=== PATIENT | female | born 1980 | race Caucasian/White ===

== ENCOUNTER → 2017-11-04 12:27 | Outpatient (CLI) | payer MEDICAID, SELFPAY ==
--- NOTE | 2017-11-04 12:30 | US_ITS ---
STUDY: ULTRASOUND TRANSVAGINAL CLINICAL: Female, 37 years old. Irregular menses. On control pills. IUD removed 1 year ago. TECHNIQUE: Transabdominal and transvaginal pelvic ultrasound. COMPARISON: None. FINDINGS: Uterus 9.6 x 4.7 x 3.7 cm, mildly heterogeneous echotexture of the uterine myometrium, a solitary fibroid noted 13 x 14 x 8 mm. Uterus is anteverted. Endometrium measures 7 mm, normal echotexture. Normal sonographic appearance of the cervix. There is no evidence of IUD. The right ovary measures 53 x 41 x 41 mm, appropriate vascular flow demonstrated. There is dense shadowing behind much of the right ovary, which may reflect either calcification, or the presence of dermoid (tip of the iceberg sign). There is no right adnexal free fluid. Left ovary is 29 x 30 x 16 mm, normal echotexture and vascular flow. There is no left ovarian mass or suspicious cyst or free fluid in left adnexa. No free fluid in the cul-de-sac. US/Transvaginal Non- IMPRESSION: Suspected dermoid of the right ovary. Normal left ovary. Small fibroid of uterus. Normal endometrium. Electronically Signed: Truong Murray, at 14:03 EDT Tel , Service support ,
--- NOTE | 2017-11-04 12:30 | US_ITS ---
STUDY: ULTRASOUND TRANSVAGINAL CLINICAL: Female, 37 years old. Irregular menses. On control pills. IUD removed 1 year ago. TECHNIQUE: Transabdominal and transvaginal pelvic ultrasound. COMPARISON: None. FINDINGS: Uterus 9.6 x 4.7 x 3.7 cm, mildly heterogeneous echotexture of the uterine myometrium, a solitary fibroid noted 13 x 14 x 8 mm. Uterus is anteverted. Endometrium measures 7 mm, normal echotexture. Normal sonographic appearance of the cervix. There is no evidence of IUD. The right ovary measures 53 x 41 x 41 mm, appropriate vascular flow demonstrated. There is dense shadowing behind much of the right ovary, which may reflect either calcification, or the presence of dermoid (tip of the iceberg sign). There is no right adnexal free fluid. Left ovary is 29 x 30 x 16 mm, normal echotexture and vascular flow. There is no left ovarian mass or suspicious cyst or free fluid in left adnexa. No free fluid in the cul-de-sac. US/Pelvic (Non ) IMPRESSION: Suspected dermoid of the right ovary. Normal left ovary. Small fibroid of uterus. Normal endometrium. Electronically Signed: Truong Murray, at 14:03 EDT Tel , Service support ,
== END ==
PROVIDERS: Visit Provider Nurse Practitioner Family
DX: N92.1 Excessive and frequent menstruation with irregular cycle (principal)
CPT/HCPCS: 76830; 76856; 93976

== ENCOUNTER 2018-03-27 08:42 | Emergency (ER) | payer MEDICAID, SELFPAY ==
[2018-03-27 08:43] VITALS: BP 135/72; PULSE 72; RESP 18; TEMP 36.2; O2SAT 100; BMI 31.1
--- NOTE | 2018-03-27 08:58 | ED.DCSUM_ITS ---
- ER Visit Summary Date of Service: 03/27/18 Chief Complaint: Left ankle injury History of Present Illness: The patient is a 37 F who states that last night she sustained an inversion injury while walking. States she has a history of weak ankles and has frequent sprains. She states this seems to be hurting worse than normal. She notes an abrasion to the top of her foot caused by her shoe. She denies any other injuries. She denies any foot pain medial or posterior ankle pain no knee pain. Physical Examination: Afebrile vital signs stable Gen: Well-nourished well-developed Head: Normocephalic atraumatic Eyes: Perrl EOMI ENT: TMs clear no rhinorrhea moist mucous membranes Neck: Supple no lymphadenopathy no JVD nontender CVS: Regular rate rhythm no murmurs normal S1-S2 Respiratory: No distress clear to auscultation bilaterally chest nontender Abdomen: Soft nontender nondistended normal bowel sounds no masses Back: Nontender Extremity: There is swelling and mild ecchymosis over the lateral malleolus. This is tender to palpation. Negative Austin's test. No Achilles tenderness. No medial or posterior malleolar pain. No fifth metatarsal pain no fibular head pain. Neurovascular intact. Skin: Normal color no rash Neuro: alert orientated ?3 CN II-XII intact normal strength sensation Psych: Normal affect normal mood Test Results: Ankle films were obtained. These were negative for fracture. Emergency Department Course and Treatment: Patient will be placed in air splint. Will use crutches as she is having significant lead difficult time with ambulation. Ibuprofen rest. Follow-up 10-14 days if not improved. Impression: 1. Left ankle sprain This note was generated with [employer] dictation software. It may contain incorrect words, spelling, and punctuation that were not noted in review of the chart prior to signing ED Disposition - Plan for ED Patient: Disposition: Home or Assisted Living Chief Complaint: Lower Extremity Injury Instructions: ED Sprain Ankle W X Ray Referrals: Mallika Abreu [Primary Care Provider] - 10-14 Days if not better
--- NOTE | 2018-03-27 09:00 | RAD_ITS ---
STUDY: X-RAY - LEFT ANKLE REASON FOR EXAM: Female, 37 years old. Trauma, twisting injury of the left ankle, pain TECHNIQUE: 3 view(s) of the ankle. COMPARISON: None. FINDINGS: Normal visualized distal tibia and fibula. Normal medial and lateral malleoli. Normal tibiotalar articulation and ankle mortise. Normal visualized talus and calcaneus. The visualized subtalar, talonavicular, calcaneocuboid and tarsal articulations are normal. Lateral ankle soft tissue swelling. RAD/Ankle min 3 Views IMPRESSION: Lateral ankle soft tissue swelling without demonstrated fracture. Electronically Signed: Amrit Rahman MD at 9:36 EST , Service support ,
[2018-03-27 09:41] VITALS: RESP 14
== END 2018-03-27 09:43 | disposition home or self-care (01) ==
PROVIDERS: Emergency Provider Emergency Medicine
DX: S93.402A Sprain of unspecified ligament of left ankle, initial encounter (principal); X50.1XXA Overexertion from prolonged static or awkward postures, initial encounter; Y93.01 Activity, walking, marching and hiking; F32.9 Major depressive disorder, single episode, unspecified; Z79.899 Other long term (current) drug therapy
CPT/HCPCS: 73610; 99283

== ENCOUNTER → 2019-10-27 11:52 | Outpatient (CLI) | payer MEDICAID, SELFPAY ==
--- NOTE | 2019-10-27 11:57 | RAD_ITS ---
STUDY: X-RAY CHEST REASON FOR EXAM: Female, 39 years old. PT HAD SKIN REACTION TO TB TEST. NO CHEST COMPLAINTS TECHNIQUE: PA and lateral views of the chest. COMPARISON: 2010 FINDINGS: The lungs are clear and expanded. There is no demonstrated pleural abnormality. Normal size heart. Normal mediastinum and gianluca. Normal visualized pulmonary arteries. Normal visualized aortic arch and descending thoracic aorta. Normal visualized thoracic spine. Normal visualized ribs, clavicles, and shoulders. There is no demonstrated abnormality of the visualized soft tissue structures of the upper abdomen. RAD/Chest PA and Lateral IMPRESSION: Normal x-ray examination of the chest. Electronically Signed: Aguilar Hdez MD at 12:06 EDT , Service support ,
== END ==
PROVIDERS: Referring Provider Nurse Practitioner Family; Visit Provider Nurse Practitioner Family
DX: Z13.9 Encounter for screening, unspecified (principal)
CPT/HCPCS: 71046

== ENCOUNTER → 2019-11-17 08:41 | Outpatient (CLI) | payer MEDICAID, SELFPAY ==
[2019-11-19 03:06] LABS: QNTFERON TB Mitogen Value > 10.00 IU/mL (.); QNTFERON TB Nil Value 0.02 IU/mL (.); QNTFERON TB1+ Ag Value 0.03 IU/mL (.); QNTFERON TB2+ Ag Value 0.02 IU/mL (.)
[2019-11-19 08:32] LABS: QNTIFERON TB Positive Criteria Negative (Negative)
== END ==
PROVIDERS: Referring Provider Nurse Practitioner Family; Visit Provider Nurse Practitioner Family
DX: Z11.1 Encounter for screening for respiratory tuberculosis (principal)
CPT/HCPCS: 36415; 86480

== ENCOUNTER → 2020-01-16 08:07 | Outpatient (CLI) | payer MEDICAID, SELFPAY ==
[2019-11-23 09:17] VITALS: BMI 30.2
[2020-01-16 10:08] LABS: Vitamin D,25 Hydroxy 28.4 ng/mL
[2020-01-16 10:17] LABS: Cholesterol 216 mg/dL (200); High Density Lipoprotein 63 mg/dL; Triglycerides 154 mg/dL; Very Low Density Lipoprotein 31 mg/dL (5-40)
[2020-01-19 07:07] LABS: QNTFERON TB Mitogen Value > 10.00 IU/mL (.); QNTFERON TB Nil Value 0.04 IU/mL (.); QNTFERON TB1+ Ag Value 0.22 IU/mL (.); QNTFERON TB2+ Ag Value 0.16 IU/mL (.)
[2020-01-19 08:07] LABS: QNTIFERON TB Positive Criteria Negative (Negative)
== END ==
PROVIDERS: Referring Provider Nurse Practitioner Family; Visit Provider Nurse Practitioner Family
DX: E78.5 Hyperlipidemia, unspecified (principal); E55.9 Vitamin D deficiency, unspecified; Z11.1 Encounter for screening for respiratory tuberculosis
CPT/HCPCS: 36415; 80061; 82306; 86480

== ENCOUNTER → 2022-05-23 | Outpatient (CLI) | payer MEDICAID, SELFPAY | END | disposition home or self-care (01) | PROVIDERS: Referring Provider Nurse Practitioner Psychiatric/Mental Health; Visit Provider Nurse Practitioner Psychiatric/Mental Health | DX: Z79.899 Other long term (current) drug therapy (principal) | CPT/HCPCS: 93005 ==